=== PATIENT | female | born 1930 | race Caucasian/White ===

== ENCOUNTER → 2016-04-26 | Outpatient (CLI) | payer MEDICARE, OTHER | LOC: GMAJ 13:01 | PROVIDERS: ATTEND Family Medicine | DX: E03.8 Other specified hypothyroidism (principal) ==

== ENCOUNTER → 2016-09-30 | Outpatient (CLI) | payer MEDICARE, OTHER | END | disposition home or self-care (01) | LOC: GMAJ 11:05 | PROVIDERS: ATTEND Family Medicine | DX: E03.8 Other specified hypothyroidism (principal) ==

== ENCOUNTER → 2016-10-31 | Outpatient (CLI) | payer MEDICARE, OTHER ==
--- NOTE | 2016-10-31 11:54 | US ---
EXAM DESCRIPTION: Carotid Duplex CLINICAL HISTORY: ATHEROSCLEROTIC HEART DISEASE OF [place] CORONARY ARTERY COMPARISON: None Available. TECHNIQUE: Color Doppler evaluation of the extracranial carotids FINDINGS: Right carotid: There is severe heterogeneous mostly calcified plaque in the carotid bulb extending into the proximal internal and external carotid arteries. Posterior acoustic shadowing limits evaluation of the velocities in the vessels. Peak systolic velocity common carotid artery = 90 cm/s Peak systolic velocity internal carotid artery = 232 cm/s Peak systolic velocity external carotid artery = 189 cm/s ICA CCA ratio 2.6 Left carotid: There is scattered heterogeneous partly calcified plaque throughout the left common carotid artery minimally indents mid to distal aspect. There is irregular heterogeneous partly calcified plaque in the carotid bulb extending into the internal and external carotid arteries. Peak systolic velocity common carotid artery = 128 cm/s Peak systolic velocity internal carotid artery = 100 cm/s Peak systolic velocity external carotid artery = 146 cm/s ICA CCA ratio 0.8 Antegrade flow is seen in both vertebral arteries Normal flow velocities and waveforms are demonstrated bilaterally. IMPRESSION: Moderate to severe right greater than left atherosclerotic disease of the carotid arteries including the internal carotid arteries. Velocities and ratios suggest at least 60-79% stenosis of the right internal carotid artery and less than 39% stenosis of the left internal carotid artery. There is 60-79% stenosis of the external carotid arteries bilaterally. Electronically signed by: Ilan Terrell MD 10/31/2016 11:52 AM CDT
--- NOTE | 2016-11-03 08:58 | US ---
EXAM DESCRIPTION: Extremity,Lower [place] Arteries CLINICAL HISTORY: 85 years Female, UNSPECIFIED ATHEROSCLEROSIS OF [place] ARTERIES OF EXTREMITIES COMPARISON: None. TECHNIQUE: 2-D grayscale and color arterial duplex Doppler evaluation of the bilateral lower extremities is performed. FINDINGS: There is [id number] scattered calcified plaque throughout the arterial vasculature of the bilateral lower extremities. There is mostly biphasic waveform flow with some triphasic flow throughout the lower extremities. Mild elevated velocity of 142 cm/s in the proximal right SFA and 206 cm/s in the proximal left SFA suggest up to 50% stenosis. There is monophasic flow in the left dorsalis pedis suggesting moderate trifurcation disease. IMPRESSION: There is [id number] calcific atherosclerotic disease of the bilateral lower extremities. No ultrasound evidence of arterial occlusion or high-grade stenosis. Electronically signed by: Ilan Terrell MD 11/03/2016 8:57 AM CDT
== END | disposition home or self-care (01) ==
LOC: US 10:30
PROVIDERS: ATTEND Family Medicine
DX: I70.203 Unspecified atherosclerosis of native arteries of extremities, bilateral legs (principal); I65.23 Occlusion and stenosis of bilateral carotid arteries; I25.119 Atherosclerotic heart disease of native coronary artery with unspecified angina pectoris

== ENCOUNTER → 2016-11-04 | Outpatient (CLI) | payer MEDICARE, OTHER ==
--- NOTE | 2016-11-05 08:03 | CT ---
EXAM DESCRIPTION: CTA Neck CLINICAL HISTORY: 85 years, Female, OCCLUSION AND STENOSIS OF UNSPECIFIED CAROTID ARTERY COMPARISON: None TECHNIQUE: CTA of the neck was performed with IV contrast including 3D reformatted images. This exam was performed according to our departmental dose-optimization program, which includes automated exposure control, adjustment of the mA and/or kV according to patient size and/or use of iterative reconstruction technique. FINDINGS: All diameter measurements and percent stenosis values in this report are based on NASCET criteria. There is calcification at the origin of the left subclavian and innominate arteries resulting in only mild stenosis. No right subclavian artery stenosis is seen. Calcified plaque in the right carotid bulb and bifurcation results in severe (greater than 90%) stenosis extending into the proximal right ICA. More distal portions of the right ICA are unremarkable. There is calcified plaque in the mid/distal left common carotid artery resulting in moderate stenosis of a short segment of the mid left CCA. Is more advanced calcified plaque in the left carotid bulb extending into the bifurcation and proximal left ICA resulting in severe (greater than 90%) stenosis. More distal portions of the left ICA are unremarkable. The left vertebral artery is dominant, but the vertebral arteries are otherwise unremarkable. No thyroid nodule or cervical adenopathy. IMPRESSION: Severe (greater than 90%) bilateral carotid artery stenosis. Electronically signed by: Randy Trujillo MD 11/05/2016 8:01 AM CDT
== END | disposition home or self-care (01) ==
LOC: CT 11:55
PROVIDERS: ATTEND Family Medicine
DX: I65.29 Occlusion and stenosis of unspecified carotid artery (principal)

== ENCOUNTER → 2017-01-23 | Outpatient (CLI) | payer MEDICARE, OTHER | END | disposition home or self-care (01) | LOC: BFHH 12:07 | PROVIDERS: ATTEND Family Medicine | DX: I25.10 Atherosclerotic heart disease of native coronary artery without angina pectoris (principal); E11.9 Type 2 diabetes mellitus without complications ==

== ENCOUNTER 2017-02-05 16:00 | Emergency (ER) | payer MEDICARE, OTHER ==
--- NOTE | 2017-02-05 16:11 | ED.PDOC ---
History of Present Illness - General Chief Complaint: Chest Pain/MS Stated Complaint: chest pain Time Seen by Provider: 02/05/17 16:11 Source: patient, RN notes reviewed, Vital Signs reviewed Additional Information: Pt with cardiac history. Most recent cardiac stent in 2008. Recent Right Carotid stent in Dec. Pt reports sudden onset chest pressure at 1300 after eating. She reported SOB and nausea associated with chest pressure. - History of Present Illness Timing/Duration: 1-3 hours - [employer] Severity/Quality: moderate Location: substernal Chest Pain Radiation: shoulders - Left Activities at Onset: none Prior Chest Pain/Cardiac Workup: cardiac cath - in 2008 Improving Factors: rest Worsening Factors: movement Nitro Today/Relief: 0.4 mg x 3, provided by ED Aspirin Treatment Today: 325 mg x 1 Associated Symptoms: nausea/vomiting, shortness of breath Allergies/Adverse Reactions: Allergies NO KNOWN ALLERGY Allergy (Verified 02/05/17 16:29) Home Medications: Ambulatory Orders Amlodipine Besylate 5 mg PO DAILY 02/05/17 Aspirin [Eq Aspirin] 325 mg PO DAILY 02/05/17 Eq Multivitamins Adult Gu 1 PO DAILY 02/05/17 Isosorbide Mononitrate [Isosorbide Mononitrate ER] 1 PO DAILY 02/05/17 Metformin HCl 500 mg PO BID 02/05/17 Review of Systems - Review of Systems Constitutional: States: no symptoms reported EENTM: States: no symptoms reported Respiratory: States: see HPI, short of breath - associated with chest pain Cardiology: States: chest pain - described for pressure Gastrointestinal/Abdominal: States: no symptoms reported Genitourinary: States: no symptoms reported Musculoskeletal: States: no symptoms reported Skin: States: no symptoms reported Neurological: States: no symptoms reported Endocrine: States: no symptoms reported Hematologic/Lymphatic: States: no symptoms reported Family Medical History - Family History Mother Family History: Unknown Physical Exam - Physical Exam General Appearance: Comfortable, No apparent distress, Obese Eyes, Ears, Nose, Throat Exam: PERRL/EOMI, normal ENT inspection, pharynx normal Neck: non-tender, full range of motion, supple, normal inspection Respiratory: normal breath sounds, no respiratory distress, no accessory muscle use Cardiovascular/Chest: tachycardia Gastrointestinal/Abdominal: non tender, soft Extremity: normal range of motion, non-tender, normal inspection 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 Patient would benefit from transfer to facility with Cardiology for serial cardiac enzymes and possible coronary angiography. - Results/Orders Results/Orders: CXR Report: EXAM DESCRIPTION: Chest,1 View CLINICAL HISTORY: chest pain COMPARISON: None. FINDINGS: Cardiac silhouette is within normal limits. There is no focal parenchymal or pleural disease. Visualized osseous structures are within normal limits. IMPRESSION: No evidence of acute cardiopulmonary disease. 02/05/17 16:15 EKG STAT 02/05/17 16:18 Nitroglycerin 0.4 mg Tab [Nitrostat] 1 ea SL .Q5MIN PRN 02/05/17 16:25 EKG STAT 02/05/17 18:45 EKG STAT 02/05/17 19:29 EKG Assessment ONCE 02/05/17 19:30 EKG STAT Laboratory Results - last 24 hr 02/05/17 02/05/17 02/05/17 16:34 16:34 19:30 WBC 7.2 RBC 4.09 L Hgb 11.7 L Hct 34.9 L MCV 85.4 MCH 28.6 MCHC 33.6 RDW 14.1 Plt Count 319 MPV 8.1 Absolute Neuts (auto) 5.90 Absolute Lymphs (auto) 0.80 L Absolute Monos (auto) 0.40 Absolute Eos (auto) 0.10 Absolute Basos (auto) 0.10 Neutrophils % 81.3 H Lymphocytes % 10.9 L Monocytes % 6.2 Eosinophils % 0.8 L Basophils % 0.8 Sodium 131 L Potassium 3.5 L Chloride 98 L Carbon Dioxide 21 Anion Gap 15.5 BUN 8 Creatinine 1.07 BUN/Creatinine Ratio 7.5 L Random Glucose 234 H Serum Osmolality 268.5 L Calcium 9.7 Total Bilirubin 0.6 AST 17 ALT 14 Alkaline Phosphatase 46 Creatine Kinase 77 80 CK-MB (CK-2) 3.8 5.4 H* D CK-MB (CK-2) % Not Reportable 6.75 H Troponin I 0.02 0.05 B-Natriuretic Peptide 62.7 Serum Total Protein 7.0 Albumin 4.0 Globulin 3.0 Albumin/Globulin Ratio 1.3 02/05/17 02/05/17 02/05/17 16:08 16:51 18:07 Temperature 96.8 F L Pulse Rate Pulse Rate [ 103 H 101 H 103 H pulse ox] Respiratory 16 16 20 Rate Blood Pressure 205/77 180/74 179/71 [Right Arm] O2 Sat by Pulse 99 98 98 Oximetry 02/05/17 02/05/17 02/05/17 19:00 20:15 21:00 Temperature 97.8 F Pulse Rate 105 H 105 H Pulse Rate [ 110 H 105 H 97 H pulse ox] Respiratory 18 18 18 Rate Blood Pressure 132/62 137/59 132/62 [Right Arm] O2 Sat by Pulse 98 97 97 Oximetry - EKG/XRAY/CT EKG: Sinus, Tachy - 106 bpm, with t wave inversion V4-V6 (EKG performed at 1606) XRAY: chest - see above - Additional EKG/XRAY/Consults EKG #2: Sinus - (This EKG performed at 1629), Tachy - 110 bpm with T wave inversion V4-V6, Unchanged from - 1606 Comments: EKG #3 at 1937 - resolved ST depression and symptoms fairly resolved. Departure - Departure Clinical Impression: Acute coronary syndrome Time of Disposition: 21:45 Disposition: Transfer to Hospital Departure Forms: ED Discharge - Pt. Copy, Patient Portal Self Enrollment Referrals: Medardo Loera MD [Primary Care Provider] - 1-2 Weeks Home Medications: Ambulatory Orders Amlodipine Besylate 5 mg PO DAILY 02/05/17 Aspirin [Eq Aspirin] 325 mg PO DAILY 02/05/17 Eq Multivitamins Adult Gu 1 PO DAILY 02/05/17 Isosorbide Mononitrate [Isosorbide Mononitrate ER] 1 PO DAILY 02/05/17 Metformin HCl 500 mg PO BID 02/05/17 Transfer to Outside Facility - Transfer Information Accepting Provider:: Dr. Rubio Accepting Facility: [facility] Reason for Transfer: specialized care not available - Cardiology
[2017-02-05] MEDS ORDERED: NITROGLYCERIN 0.4 MG 25 EA TAB SL PRN (16:18)
[2017-02-05] MEDS ORDERED: ASPIRIN (CHEWABLE) 81 MG TAB PO ONE (16:18)
--- NOTE | 2017-02-05 16:49 | RAD ---
EXAM DESCRIPTION: Chest,1 View CLINICAL HISTORY: chest pain COMPARISON: None. FINDINGS: Cardiac silhouette is within normal limits. There is no focal parenchymal or pleural disease. Visualized osseous structures are within normal limits. IMPRESSION: No evidence of acute cardiopulmonary disease. Electronically signed by: Ren Gaffney 02/05/2017 4:48 PM [facility]
[2017-02-05] MEDS ORDERED: SODIUM CHLORIDE 0.9% 1000ML 1,000 ML IVS ONE (17:24)
[2017-02-05 23:43] VITALS: BP 157/65; TEMP 97.6; O2SAT 95
== END 2017-02-05 22:35 | disposition short-term general hospital (02) ==
LOC: ER 16:00
DX: I24.9 Acute ischemic heart disease, unspecified (principal); Z79.82 Long term (current) use of aspirin; Z95.5 Presence of coronary angioplasty implant and graft
CPT/HCPCS: 36415; 71010; 80053; 82550; 82553; 83880; 84484; 85025; 93005; J7030

== ENCOUNTER → 2017-02-20 | Outpatient (CLI) | payer MEDICARE, OTHER | END | disposition home or self-care (01) | LOC: BFHH 15:02 | PROVIDERS: ATTEND Family Medicine | DX: N39.0 Urinary tract infection, site not specified (principal) ==

== ENCOUNTER → 2017-03-27 | Outpatient (CLI) | payer MEDICARE, OTHER | LOC: BFHH 13:16 | PROVIDERS: ATTEND Family Medicine | DX: E87.6 Hypokalemia (principal) ==

== ENCOUNTER → 2017-05-20 | Outpatient (CLI) | payer MEDICARE, OTHER | END | disposition home or self-care (01) | LOC: GMAJ 12:00 | PROVIDERS: ATTEND Family Medicine | DX: E03.9 Hypothyroidism, unspecified (principal) ==

== ENCOUNTER → 2017-06-13 | Outpatient (CLI) | payer MEDICARE, OTHER ==
--- NOTE | 2017-06-13 13:38 | CT ---
EXAM DESCRIPTION: CT ABDOMEN AND PELVIS WITH CONTRAST CLINICAL HISTORY: GENERALIZED ABD PAIN COMPARISON: None Available. TECHNIQUE: CT of the abdomen and pelvis are performed during IV bolus administration of standard adult dose of Optiray 320. Oral contrast media is administered as well. FINDINGS: In the lower chest, the lung bases are clear. Heart size is normal. Eight millimeter nodule is seen in the right lower lobe. CT abdomen Gallbladder surgically absent. There is extensive splenic arterial calcification. 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 Small cyst in the posterior mid left kidney measures 1.3 cm. Mild infrarenal abdominal aortic aortic ectasia measures up to 2.1 cm. No imaging follow-up is required for this aortic diameter. The liver, spleen, pancreas, adrenal glands, stomach and kidneys are otherwise unremarkable in appearance. No inflammation around the pancreas. No renal stones or hydronephrosis. No bowel dilatation to suggest obstruction. No free air or free fluid. CT pelvis Appendix appears normal. No inflammation around the cecum or terminal ileum or sigmoid colon. Bladder and distal ureters are negative for stones. Normal enhancement of pelvic vessels. No inguinal or lower pelvic adenopathy. Bone window images are negative for fracture or lytic lesion. Bilateral L5 spondylolysis is present. Advanced degenerative changes in the lower L-spine. Coronal and sagittal reformatted images confirm the findings. Sagittal images show grade 1 spondylolisthesis of L4 on L5 with severe disc degeneration. IMPRESSION: Right lower lobe nodule measuring 8 mm. 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 Left renal cyst. No acute process in the abdomen or pelvis. This exam was performed according to our departmental dose-optimization program, which includes automated exposure control, adjustment of the mA and/or kV according to patient size and/or use of iterative reconstruction technique. Total DLP equals 1158.46 mGycm. Electronically signed by: Pablo Arreola MD 06/13/2017 1:37 PM CDT
== END ==
LOC: CT 08:04
PROVIDERS: ATTEND Internal Medicine Gastroenterology
DX: R10.84 Generalized abdominal pain (principal); R63.4 Abnormal weight loss; N28.1 Cyst of kidney, acquired; D17.79 Benign lipomatous neoplasm of other sites; R91.1 Solitary pulmonary nodule

== ENCOUNTER 2017-08-20 05:46 | Day surgery (SDC) | payer MEDICARE, OTHER ==
[2017-08-20] MEDS ORDERED: LACTATED RINGERS 1,000 ML ONE (06:37)
[2017-08-20] MEDS ORDERED: PROPOFOL 200 MG/20 ML VIAL IV ONE (07:00)
[2017-08-20] MEDS ORDERED: LIDOCAINE 1% 10 ML VIAL INJ ONE (07:00)
[2017-08-20 08:52] VITALS: TEMP 97.8; O2SAT 99
--- NOTE | 2017-08-20 09:23 | OP ---
DATE OF PROCEDURE: 08/20/17 PREOPERATIVE DIAGNOSIS: 1. Epigastric pain. 2. Weight loss. 3. Nausea. POSTOPERATIVE DIAGNOSIS: 1. Acute gastric ulceration. PROCEDURE: 1. Esophagogastroduodenoscopy. SURGEON: Ollie Hoffman MD ANESTHESIA: Monitored anesthesia care. ESTIMATED BLOOD LOSS: Less than 5 mL. COMPLICATIONS: No immediate complications. PROCEDURE: The patient was placed in the left lateral decubitus position. After deep sedation with monitored anesthesia care was achieved, the standard Olympus upper endoscope was passed through the oropharynx and into the proximal esophagus and then advanced to the second portion of the duodenum under direct visualization. The endoscope was then progressively withdrawn and the duodenum , stomach and esophagus lumen were evaluated. Retroflexion was performed in the stomach. The endoscope was then withdrawn and the procedure was terminated. The patient tolerated the procedure well with no immediate complications. FINDINGS: 1. Esophagus: The esophagus was unremarkable. The gastroesophageal junction was located at 40 cm. 2. Stomach: A 1 cm, deepened ulceration with heaped up edges was seen in the prepyloric area of the antrum. This ulcer was clean based, there was no stigmata of recent bleeding. No endoscopic therapy was necessary. Biopsies were taken from the ulcer edge. Random gastric biopsies were also taken to rule out H. pylori. The stomach was otherwise unremarkable. 3. Duodenum: The bulb, first and second portions of the duodenum were unremarkable. IMPRESSION: 1. Acute gastric ulceration status post ulcer biopsies and random gastric biopsies to rule out Helicobacter pylori. RECOMMENDATIONS: 1. Okay to discharge home. 2. Await pathology results. 3. Restart Protonix 40 mg twice a day for 6 weeks, then once daily thereafter. 4. Followup in GI clinic with Dr. Hoffman in 1 to 2 months. 5. Repeat upper endoscopy in 2 months. #[id number] [facility]
[2017-08-20 09:34] VITALS: BP 128/78
== END 2017-08-20 09:15 | disposition home or self-care (01) ==
LOC: AMB 05:46
PROVIDERS: ATTEND Internal Medicine Gastroenterology
DX: K25.3 Acute gastric ulcer without hemorrhage or perforation (principal); I10 Essential (primary) hypertension; E11.9 Type 2 diabetes mellitus without complications; I25.10 Atherosclerotic heart disease of native coronary artery without angina pectoris; K21.9 Gastro-esophageal reflux disease without esophagitis; E66.9 Obesity, unspecified; J44.9 Chronic obstructive pulmonary disease, unspecified; Z68.35 Body mass index [BMI] 35.0-35.9, adult; Z95.5 Presence of coronary angioplasty implant and graft; Z79.84 Long term (current) use of oral hypoglycemic drugs; Z79.4 Long term (current) use of insulin; Z79.02 Long term (current) use of antithrombotics/antiplatelets; Z79.899 Other long term (current) drug therapy
CPT/HCPCS: 00731; 36416; 43239; 82948; J3490; J7120

== ENCOUNTER → 2017-09-03 | Outpatient (CLI) | payer MEDICARE, OTHER ==
--- NOTE | 2017-09-04 08:06 | MAM ---
EXAM DESCRIPTION: 3D Screening BILATERAL : Digital Mammography. CLINICAL HISTORY: 86 years Female SCREENING . No complaints. No family history of breast cancer. Childbirth. Postmenopausal. No HRT. COMPARISON: Digital screening bilateral study 10/24/2010. No prior reports available. TECHNIQUE: Bilateral CC and MLO projection full-field images, 3-D tomosynthesis digital mammographic technique. CAD not utilized. FINDINGS: The breast parenchymal density pattern is: Almost entirely fatty. No skin thickening or nipple retraction. Bilateral lymph nodes in the axilla and axillary tail. Bilateral solitary microcalcifications. Bilateral vascular calcifications. No new focal, stellate mass or density, focal asymmetry , and no suspicious microcalcifications bilaterally. Stable mammograms compared to prior study, taking into account differences in mammographic technique. IMPRESSION: BI-RADS CATEGORY: 2 - BENIGN FINDINGS. FOLLOW UP: Routine digital bilateral screening, one year interval from August 2017. Written communication explaining the IMPRESSION and follow-up, will be mailed to the patient and referring health care provider. According to the [employer], yearly mammograms are recommended starting at age 40 and continuing as long as a woman is in good health. Any breast change noted on a breast self-exam should be reported promptly to the patient's healthcare provider. Breast MRI is recommended for women with an approximately 20-25% or greater lifetime risk of breast cancer, including women with a strong family history of breast or ovarian cancer and women who have been treated for Hodgkin's disease. A negative mammographic report should not delay tissue diagnosis in patients with significant clinical history or physical findings. Extremely dense breast tissue limits the sensitivity of digital mammography. Electronically signed by: Ren Martínez MD 09/04/2017 8:05 AM CDT
== END ==
LOC: MAMMO 08:00
PROVIDERS: ATTEND Family Medicine
DX: Z12.31 Encounter for screening mammogram for malignant neoplasm of breast (principal)

== ENCOUNTER → 2017-10-15 | Outpatient (CLI) | payer MEDICARE, OTHER ==
--- NOTE | 2017-10-15 10:38 | CT ---
EXAM DESCRIPTION: Chest w/Contrast CLINICAL HISTORY: 86 years, Female, PULMONARY NODULE COMPARISON: CT abdomen and pelvis June 13, 2017, two TECHNIQUE: Thin-section noncontrast axial CT images are obtained according to our protocol. Reconstructed MPR images are created and reviewed as well. FINDINGS: Lungs: No consolidating pulmonary infiltrate or groundglass infiltrate. Small nodule in the right lower lobe lateral to the dome of the diaphragm measures 7 mm on the present study compared to 8 mm on previous exam. No evidence of interval growth. Minimal linear scarring or discoid atelectasis in the medial right middle lobe and inferior lingula. Tiny granulomas in the right apex are in the 1 to 2 mm size range, benign in appearance. No pleural effusion. Mediastinum: Lymph nodes are normal in size. Normal vascular contours. Heart size is normal with no pericardial effusion. There is extensive coronary arterial calcification. Chest wall/axilla: No mass or adenopathy. Lower neck/supraclavicular: No mass or adenopathy. Upper abdomen: Thickening of the left anterior abdominal wall may be muscular contraction since muscles appeared normal in this area on the previous study in June 2017. Sono might be considered. Otherwise unremarkable upper abdominal viscera. Small left renal cyst 1.6 cm is unchanged from previous study. Gallbladder is surgically absent. Coronal and sagittal reformatted images confirm the findings. IMPRESSION: Right lower lobe nodule measures 7 mm, essentially stable compared to the previous study. Continued follow-up as per recommendations below. 2017 Fleischner Society Recommendations for Single Solid Lung Nodule Follow-Up based on size (average of long- and short-axis diameters) <6 mm Low-Risk Patient: No routine follow-up <6 mm High-Risk Patient: Optional CT at 12 months 6-8 mm Low-Risk Patient: CT at 6-[address] at 18-24 months 6-8 mm High-Risk Patient: CT at 6-[address] at 18-24 months >8 mm Low-Risk Patient: Consider CT, PET/CT or tissue sampling at 3 months >8 mm High-Risk Patient: Same as for low-risk patient This exam was performed according to our departmental dose-optimization program, which includes automated exposure control, adjustment of the mA and/or kV according to patient size and/or use of iterative reconstruction technique. Total DLP equals 830.05 mGycm. Electronically signed by: Pablo Arreola MD 10/15/2017 10:36 AM CDT
== END ==
LOC: CT 09:07
PROVIDERS: ATTEND Family Medicine
DX: R91.1 Solitary pulmonary nodule (principal)

== ENCOUNTER → 2018-01-26 | Outpatient (CLI) | payer MEDICARE, OTHER | LOC: GMAJ 10:48 | PROVIDERS: ATTEND Family Medicine | DX: E03.8 Other specified hypothyroidism (principal) ==

== ENCOUNTER → 2018-10-14 | Outpatient (CLI) | payer MEDICARE, OTHER ==
--- NOTE | 2018-10-14 09:12 | CT ---
EXAM DESCRIPTION: Chest w/o Contrast CLINICAL HISTORY: 87 years, Female, LUNG NODULE COMPARISON: Previous CT chest October 15, 2017, previous CT abdomen included the lower chest on June 13, 2017 TECHNIQUE: Thin-section noncontrast axial CT images are obtained according to our protocol. Reconstructed MPR images are created and reviewed as well. FINDINGS: Lungs: Linear scarring in the right middle lobe with slight nodularity is stable compared to the previous study. Nodular component measures 4 mm unchanged. Lateral to the dome of the right hemidiaphragm, a partly calcified nodule in the lateral basal segment right lower lobe measures 7 mm unchanged. No new mass or nodule. Few tiny scattered 1 mm granulomas unchanged. Linear scarring in the inferior lingula is stable. No consolidating infiltrate. Mediastinum: Lymph nodes are normal in size. Normal vascular contours. Heart size is normal with no pericardial effusion. Extensive coronary arterial calcification. Chest wall/axilla: No mass or adenopathy. Lower neck/supraclavicular: No mass or adenopathy. Upper abdomen: Unremarkable upper abdominal viscera. Coronal and sagittal reformatted images confirm the findings. IMPRESSION: Stable 7 mm nodule in the right lower lobe. Follow-up as per recommendations below. 2017 Fleischner Society Recommendations for Single Solid Lung Nodule Follow-Up based on size (average of long- and short-axis diameters) 6-8 mm Low-Risk Patient: CT at 6-[address] at 18-24 months 6-8 mm High-Risk Patient: CT at 6-[address] at 18-24 months. (Final chest CT should be obtained in early June 2019.) This exam was performed according to our departmental dose-optimization program, which includes automated exposure control, adjustment of the mA and/or kV according to patient size and/or use of iterative reconstruction technique. Total DLP equals 693.01 mGycm. Electronically signed by: Pablo Arreola MD 10/14/2018 9:10 AM CDT
== END ==
LOC: CT 08:35
PROVIDERS: ATTEND Internal Medicine
DX: J44.9 Chronic obstructive pulmonary disease, unspecified (principal); R91.1 Solitary pulmonary nodule

== ENCOUNTER → 2018-10-19 | Outpatient (CLI) | payer MEDICARE, OTHER ==
--- NOTE | 2018-10-20 17:19 | MAM ---
EXAM DESCRIPTION: 3D Screening BILATERAL : Digital Mammography. CLINICAL HISTORY: 87 years Female SCREEN . No complaints or personal history of breast cancer. Remote family history of breast cancer. Childbirth. Postmenopausal. HRT 5 or more years ago. Lifetime risk of developing breast cancer (Tyrer-Cuzick model)(%): 0.9. COMPARISON: Bilateral screening digital breast tomosynthesis 09/03/2017. TECHNIQUE: Bilateral CC and MLO projection full-field images, digital tomosynthesis mammographic technique. Bilateral digital 2-D full-field MLO images. CAD not available for tomosynthesis or 2-D images. FINDINGS: The breast parenchymal density pattern is: Scattered areas of fibroglandular density. No skin thickening or nipple retraction. Bilateral vascular calcifications. Bilateral intramammary and axillary lymph nodes. Bilateral solitary microcalcifications. No new focal, stellate mass or density, focal asymmetry , and no suspicious microcalcifications bilaterally. Stable mammograms compared to prior study. IMPRESSION: Benign exam. BIRAD CATEGORY: 2 BENIGN FINDINGS. RECOMMENDATIONS: FOLLOW UP: Routine digital bilateral mammographic screening, one year interval from October 2018. Written communication explaining the IMPRESSION and follow-up, will be mailed to the patient and referring health care provider. According to the [employer], yearly mammograms are recommended starting at age 40 and continuing as long as a woman is in good health. Any breast change noted on a breast self-exam should be reported promptly to the patient's healthcare provider. Breast MRI is recommended for women with an approximately 20-25% or greater lifetime risk of breast cancer, including women with a strong family history of breast or ovarian cancer and women who have been treated for Hodgkin's disease. A negative mammographic report should not delay tissue diagnosis in patients with significant clinical history or physical findings. Extremely dense breast tissue limits the sensitivity of digital mammography. Electronically signed by: Ren Martínez MD 10/20/2018 5:18 PM CDT
== END ==
LOC: MAMMO 09:30
PROVIDERS: ATTEND Family Medicine
DX: Z12.31 Encounter for screening mammogram for malignant neoplasm of breast (principal)

== ENCOUNTER → 2019-01-26 | Outpatient (CLI) | payer MEDICARE, OTHER | LOC: GMAJ 11:14 | PROVIDERS: ATTEND Family Medicine | DX: E03.8 Other specified hypothyroidism (principal); I10 Essential (primary) hypertension; E78.2 Mixed hyperlipidemia; E11.9 Type 2 diabetes mellitus without complications ==

== ENCOUNTER → 2019-05-31 | Outpatient (CLI) | payer MEDICARE, OTHER | LOC: GMAJ 11:44 | PROVIDERS: ATTEND Family Medicine | DX: E03.8 Other specified hypothyroidism (principal); I10 Essential (primary) hypertension; E78.2 Mixed hyperlipidemia; E11.9 Type 2 diabetes mellitus without complications ==

== ENCOUNTER → 2019-11-05 | Outpatient (CLI) | payer MEDICARE, OTHER ==
--- NOTE | 2019-11-08 08:34 | CT ---
EXAM DESCRIPTION: Chest w/o Contrast : Computed Tomography. CLINICAL HISTORY: 88 years Female LUNG NODULE COMPARISON: CT chest without contrast October 2018. TECHNIQUE: Spiral-axial scans at 5.0 mm intervals through the lungs and thorax without IV contrast. 2.5 x 5.0 mm lung algorithm axial reconstructions. 2.0 Mm reconstructions. No adverse reactions. Total Exam DLP: 673 mGy-cm. This exam was performed according to our departmental dose-optimization program which includes automated exposure control, adjustment of the mA and/or kV according to patient size and/or use of iterative reconstruction technique; to reduce radiation dose to as low as reasonably achievable (ALARA). Nodule measurements under 10 mm are given as mean value of 3 axes diameters. FINDINGS: Lungs and large airways: Solid nodule subpleural lateral recess right lower lobe on axial series 4, image 90 measuring 6.2 mm. Slightly enlarged since the prior study. Margins are circumscribed with no spiculations and no calcification. New Groundglass nodule or scar in the mid right upper lobe on image 45 and 46 measuring 11 x 6 mm. New subpleural semisolid nodule versus thickening anterolateral left upper lobe, 4.2 mm diameter of the solid component, on image 4/55. Pleural parenchymal scarring in the inferior lingula. Stable thickening in the left major fissure. And bilateral lower lobe bases. No dominant mass. Pleural spaces: Bilateral focal pleural thickening with no acute process. Mediastinum and Vianca: Evaluation limited due to lack of IV contrast small lymph nodes no interval change. Great vessels and Heart: Evaluation limited due to lack of IV contrast. Coronary artery calcifications and stents. Atherosclerotic calcification of several brachiocephalic vessels aortic arch and descending thoracic aorta stable. Soft tissues of neck base, axillae, and chest wall: Evaluation limited due to lack of IV contrast. Normal size axillary nodes. Small thyroid gland. Stable from the prior study. Upper abdomen: Surgical clips gallbladder fossa with no fluid. Extensive atherosclerotic calcifications of the major branches of the aorta and the abdominal aorta. Minimal prominence of the left adrenal gland is stable with fatty density. Spleen and right adrenal gland are negative. Osseous structures: Bilateral glenohumeral joint arthrosis greater on the right. Thoracic spondylosis and mild dextroscoliosis. Multiple levels of cervical spondylosis again noted. Stable sternoclavicular arthrosis.. IMPRESSION: 1. 6.2 mm subpleural solid nodule right lower lobe is enlarged slightly since the prior study. New groundglass nodule or scar in the mid right upper lobe measuring 11 x 6 mm. New subpleural semisolid 4.2 mm nodule versus focal pleural thickening left upper lobe. [facility] Best Practice guidelines: Multiple pulmonary nodules. Most severe: 6.2 mm solid pulmonary nodule. Recommend a non-contrast Chest CT at 3-6 months, then consider another non-contrast Chest CT at 18-24 months. These guidelines do not apply to immunocompromised patients and patients with cancer. Follow up in patients with significant comorbidities as clinically warranted. For lung cancer screening, adhere to Lung-RADS guidelines. Reference: Radiology. 2017; 284(1):228-43. 2. Stable hilar and mediastinal regions also stable soft tissues chest wall and base of neck. Electronically signed by: Ren Martínez MD 11/08/2019 8:32 AM CDT
== END ==
LOC: CT 10:11
PROVIDERS: ATTEND Family Medicine
DX: R91.8 Other nonspecific abnormal finding of lung field (principal)

== ENCOUNTER → 2019-11-09 | Outpatient (CLI) | payer MEDICARE, OTHER ==
--- NOTE | 2019-11-10 16:38 | MAM ---
EXAM DESCRIPTION: 3D Screening BILATERAL : Digital Mammography. CLINICAL HISTORY: 89 years Female ANNUAL SCREENING . No complaints. Remote family history of breast cancer. Menarche unknown. Childbirth age 21. Menopause age unknown.. Lifetime risk of developing breast cancer (Tyrer-Cuzick model)(%): Not calculated due to age greater than 85 years. COMPARISON: Bilateral screening digital breast tomosynthesis October 2018 and August 2017. TECHNIQUE: Bilateral CC and MLO projection full-field images, digital tomosynthesis mammographic technique. Bilateral digital 2-D full-field MLO images. CAD available for 2-D images. FINDINGS: The breast parenchymal density pattern is: Scattered areas of fibroglandular density. No skin thickening or nipple retraction. Axillary lymph nodes. Intramammary lymph nodes. Vascular calcifications. Skin mole marker anterior left breast. Solitary microcalcifications. No new focal, stellate mass or density, focal asymmetry , and no suspicious microcalcifications bilaterally. Stable mammograms compared to prior study. IMPRESSION: Benign exam. BIRAD CATEGORY: 2 BENIGN FINDINGS. RECOMMENDATIONS: FOLLOW UP: Routine digital bilateral mammographic screening, one year interval from October 2019. Written communication explaining the IMPRESSION and follow-up, will be mailed to the patient and referring health care provider. According to the [employer], yearly mammograms are recommended starting at age 40 and continuing as long as a woman is in good health. Any breast change noted on a breast self-exam should be reported promptly to the patient's healthcare provider. Breast MRI is recommended for women with an approximately 20-25% or greater lifetime risk of breast cancer, including women with a strong family history of breast or ovarian cancer and women who have been treated for Hodgkin's disease. A negative mammographic report should not delay tissue diagnosis in patients with significant clinical history or physical findings. Extremely dense breast tissue limits the sensitivity of digital mammography. Electronically signed by: Ren Martínez MD 11/10/2019 4:36 PM CDT
== END ==
LOC: MAMMO 11:05
PROVIDERS: ATTEND Family Medicine
DX: Z12.31 Encounter for screening mammogram for malignant neoplasm of breast (principal)